=== PATIENT | female | born 1970 | race Caucasian/White ===

== ENCOUNTER 2017-05-15 09:40 | Day surgery (SDC) | payer OTHER ==
[~2017-05-15] VITALS: Ht 165.1 cm; Wt 70.1 kg
[2017-05-15] VITALS (11 sets, daily range): BP systolic 103–162; BP diastolic 62–89; PULSE 52–80; RESP 14–56; Ht 165.1 cm; Wt 70.1 kg
[~2017-05-15 09:40] MED LIST: CEFAZOLIN 1 GM INJ ONE; CEFAZOLIN 1 GM/50 ML (PMX) 50 ML IVPB SCH; DOXY100T20 PO; FLUO10TA PO; HYDR-3498 PO; LIDOCAINE 2% (SDV) 5 ML INJ ONE; PROPOFOL 200 MG INJ ONE; SOD CHLORIDE 0.9% 1,000 ML IV SCH; TAMO10TA20 PO
[2017-05-15] MEDS ORDERED: FLUO10CA17 PO (10:58)
[2017-05-15] MEDS ORDERED: TAMO10TA20 PO (10:58)
[2017-05-15 11:18] LABS: BASOPHILS % 0.6 % (0.0-2.0); EOSINOPHILS # 0.4 10^3/ul (0.0-0.5); EOSINOPHILS % 6.6 % (0.0-7.0); HEMATOCRIT 39.8 % (37.0-47.0); HEMOGLOBIN 13.3 g/dl (12.0-16.0); LYMPHOCYTES # 1.9 10^3/ul (0.8-2.9); LYMPHOCYTES % 30.4 % (15.0-51.0); MEAN CORPUSCULAR HGB CONC 33.4 g/dl (32.0-37.0); MEAN CORPUSCULAR VOLUME 89.6 fl (82.0-101.0); MEAN PLATELET VOLUME 9.4 fl (7.4-10.4); MONOCYTE # 0.5 10^3/ul (0.3-0.9); MONOCYTES % 7.6 % (0.0-11.0); NEUTROPHILS % 54.6 % (39.0-77.0); PLATELET COUNT 308 10^3/UL (140-415); RED BLOOD COUNT 4.44 10^6/ul (4.20-5.40); RED CELL DISTRIBUTION WIDTH 13.1 % (11.5-14.5); WHITE BLOOD COUNT 6.3 10^3/ul (4.8-10.8)
[2017-05-15 11:40] LABS: INR 0.88; PROTIME 11.9 Sec (12.2-14.2); PT RATIO 0.9
[2017-05-15 11:42] LABS: ALBUMIN 4.3 g/dl (3.3-4.9); ALBUMIN/GLOBULIN RATIO 1.26; BILIRUBIN,INDIRECT 0.2 mg/dl (0-1.1); BILIRUBIN,TOTAL 0.2 mg/dl (0.2-1.3); CALCIUM 9.4 mg/dl (8.4-10.2); CREATININE 0.8 mg/dl (0.44-1.00); POTASSIUM 3.9 mmol/L (3.5-5.1); TOTAL PROTEIN 7.7 g/dl (6.1-8.1)
[2017-05-15] MEDS ORDERED: FENTAnyl 50 MCG/ML VIAL ONE (12:25)
[2017-05-15] MEDS ORDERED: LIDOCAINE 2%/EPI 30 ML INJ ONE (12:39)
[2017-05-15] MEDS ORDERED: DIPHENHYDRAMINE 50 MG INJ IV PRN (13:30)
[2017-05-15] MEDS ORDERED: FENTAnyl 50 MCG/ML VIAL IV PRN ×3 (13:30)
[2017-05-15] MEDS ORDERED: hydrALAzine 20 MG INJ IV PRN (13:30)
[2017-05-15] MEDS ORDERED: OXYCODONE/ACETAMINOPHEN (5/325) TAB PO PRN ×2 (13:30)
[2017-05-15] MEDS ORDERED: EPHEDrine SULFATE 50 MG/5 ML SYG IV PRN (13:30)
[2017-05-15] MEDS ORDERED: LABETALOL HCL 20MG INJ IV PRN (13:30)
[2017-05-15] MEDS ORDERED: MEPERIDINE 25 MG INJ IV PRN (13:30)
[2017-05-15] MEDS ORDERED: ONDANSETRON 4 MG INJ IV PRN (13:30)
[2017-05-15] MEDS ORDERED: KETOROLAC 30 MG INJ IV PRN (13:30)
--- NOTE | 2017-05-15 18:17 | OPR ---
DATE OF OPERATION: 05/15/2017 PREOPERATIVE DIAGNOSIS: History of breast cancer. Need for Port- A-Cath removal. POSTOPERATIVE DIAGNOSIS: Same. OPERATIVE PROCEDURE: Removal of chemo port from the left subclavian location. ANESTHESIA: General. ANESTHESIOLOGIST: Dr. Gomez. SURGEON: Dr. Tucker. DIGITAL MARKETING MANAGER: Dr. Carrera. INDICATIONS FOR PROCEDURE: Patient is a 46-year-old female, whom I had previously treated for right breast cancer. The patient had completed her treatment successfully and requested port removal. She consented and was scheduled for surgery. OPERATIVE PROCEDURE: Patient was brought to the operating theater, placed under general anesthesia, and the region around the port on the left anterior thorax was prepped and draped in usual sterile fashion. The well-healed surgical scar overlying the port was re-incised with a 15-blade scalpel. With combination of sharp dissection and cautery, the port was dissected from the surrounding tissue and was gently removed while pressure was held in an infraclavicular location. The port appeared to be grossly intact. It was sent for gross pathologic analysis to confirm that it was intact. The wound was then irrigated. Minimal bleeding was controlled with cautery. The skin was reapproximated with 2-0 nylon sutures in vertical mattress fashion. The patient tolerated procedure well. ESTIMATED BLOOD LOSS: 5 mL. COMPLICATIONS: There were no complications. The patient was transported in stable condition to recovery room. Dictated By: Mariano Tucker MD /[email or web address] t /Document#: [id number]
== END 2017-05-15 15:08 | disposition home or self-care (01) ==
LOC: SDS 09:40
PROVIDERS: ATTEND Surgery Surgical Oncology
DX: Z45.2 Encounter for adjustment and management of vascular access device (principal); Z85.3 Personal history of malignant neoplasm of breast
CPT/HCPCS: 36590; 80053; 84703; 85025; 85610; 85730; 88300; J0690; J3010; Z7512; Z7610